=== PATIENT | male | born 2000 | race Caucasian/White ===

== ENCOUNTER 2023-05-20 01:18 | Emergency (ER) | payer OTHER ==
[2023-05-20] MEDS ORDERED: Lidocaine 2% PF 5 ML VIAL ONE (02:06)
[2023-05-20] MEDS ORDERED: Lidocaine 1% (PF) 30 ML VIAL ONE (02:07)
[2023-05-20] MEDS ORDERED: Lidocaine 1% MPF 2 ML VIAL ONE (02:09)
[2023-05-20] MEDS ORDERED: Bupivacaine 0.25% 10 ML VIAL ONE (02:23)
[2023-05-20] MEDS ORDERED: Lidocaine 1% PF 5 ML VIAL ONE (03:12)
== END 2023-05-20 03:30 | disposition short-term general hospital (02) ==
LOC: ERS 01:18
DX: S01.511A Laceration without foreign body of lip, initial encounter (principal); F17.290 Nicotine dependence, other tobacco product, uncomplicated; Y04.2XXA Assault by strike against or bumped into by another person, initial encounter; Y93.89 Activity, other specified; Y92.838 Other recreation area as the place of occurrence of the external cause
CPT/HCPCS: 40650; J2001; S0020